=== PATIENT | male | born 1955 | race Caucasian/White ===

== ENCOUNTER 2021-04-16 09:01 | Emergency (ER) | payer MEDICARE, OTHER ==
--- NOTE | 2021-04-16 09:33 | EDM.PDOC ---
ED HPI GENERAL MEDICAL PROBLEM - General Stated Complaint: ARM PAIN, DIZZY Time Seen by Provider: 04/16/21 09:10 Source of Information: Reports: Patient History Limitations: Reports: No Limitations - History of Present Illness INITIAL COMMENTS - FREE TEXT/NARRATIVE: pt come in ambulatory from home with concerns for waking up feeling dizzy this morning, also noticing numbness at left hand and left side of his face, he had an emesis on his way to hospital, denies any HAs, neck stiffness , fever , chest pain or any other associated sx, report stable chronic smoker cough and denies any other resp sx or CV or neuro or constitutional sx or any other medical concerns. pt report Hx of recurrent dizzy spells but today he is worried about the numbness , he feels fine now that he is here and after he had the emesis this morning. ED ROS GENERAL - Review of Systems Review Of Systems: See Below Constitutional: Reports: No Symptoms. Denies: Fever, Chills, Fatigue, Night Sweats HEENT: Reports: No Symptoms Respiratory: Reports: No Symptoms Cardiovascular: Reports: No Symptoms GI/Abdominal: Reports: No Symptoms : Reports: No Symptoms Musculoskeletal: Reports: No Symptoms Skin: Reports: No Symptoms Neurological: Reports: Dizziness, Numbness Psychiatric: Reports: No Symptoms ED EXAM, GENERAL - Physical Exam Exam: See Below Exam Limited By: No Limitations General Appearance: Alert, No Apparent Distress Head: Atraumatic, Normocephalic Respiratory/Chest: No Respiratory Distress, Lungs Clear Cardiovascular: Normal Peripheral Pulses, Regular Rate, Rhythm GI/Abdominal: Normal Bowel Sounds, Soft Back Exam: Normal Inspection Extremities: Normal Inspection Neurological: Alert, Oriented, CN II-XII Intact, Normal Reflexes, No Motor/Sensory Deficits Psychiatric: Normal Affect Skin Exam: Warm Course - Vital Signs Text/Narrative:: labs are unremarkable , Head CT without contrast shows chronic small vessel disease changes , old lacunar infarct and no acute findings. pt has is mildly hypertensive , he is asymptomatic now and ambulatory, repeat neuro exam is nl, pt is medically stable for discharge home , findings on his CT were explained, had a lengthy discussion regarding smoking cessation. pt had a recurrent dizzy spell this morning which is chronic for him, and unexpl ained numbness at left hand and left side of his face today that resolved, he may have had subtle sx of TIA, he is stable for discharge home , asked him to establish care with a PCP on Monday for a re-check and to establish mng plan for smoking cessation as well screening for health maintenance issues as well rechecking on his elevated BP today. - Orders/Labs/Meds Orders: Active Orders 24 hr Category Date Time Status Head wo Cont [CT] Stat Exams 04/16/21 09:35 Taken Sodium Chloride 0.9% [Normal Saline] 1,000 ml Med 04/16/21 09:36 Active IV .BOLUS Medication Orders Sodium Chloride (Normal Saline) 1,000 mls @ 500 drops/hr IV .BOLUS ONE Stop: 04/17/21 15:35 Labs: Laboratory Tests 04/16/21 04/16/21 04/16/21 Range/Units 09:45 09:45 09:45 WBC 10.1 (3.2-10.1) x10-3/uL RBC 4.60 (3.90-5.90) x10(6)uL Hgb 13.6 (12.9-17.7) g/dL Hct 41.6 (38.3-50.1) % MCV 90.5 (80.8-98.7) fL MCH 29.6 (27.0-33.3) pg MCHC 32.7 (28.7-35.3) g/dL RDW 13.5 (12.4-15.0) % Plt Count 291 (117-477) x10(3)uL Sodium 140 (135-145) mmol/L Potassium 4.9 (3.5-5.3) mmol/L Chloride 103 (100-110) mmol/L Carbon Dioxide 28 (21-32) mmol/L BUN 15 (7-18) mg/dL Creatinine 1.1 (0.70-1.30) mg/dL Est Cr Clr Drug Dosing TNP Estimated GFR (MDRD) > 60 (>60) BUN/Creatinine Ratio 13.6 (9-20) Glucose 105 (80-116) mg/dL Calcium 8.7 (8.6-10.2) mg/dL Total Bilirubin 0.8 (0.1-1.3) mg/dL AST 47 H (5-25) IU/L ALT 63 H (12-36) U/L Alkaline Phosphatase 102 (56-112) IU/L Total Protein 6.4 (6.0-8.0) g/dL Albumin 3.2 (3.2-4.6) g/dL Globulin 3.2 g/dL Albumin/Globulin Ratio 1.0 TSH, Ultra Sensitive 1.89 (0.36-3.74) IU/mL Ethyl Alcohol < 0.03 (<0.03) % Meds: Medications Generic Name Dose Route Start Last Admin Trade Name Freq PRN Reason Stop Dose Admin Sodium Chloride 1,000 mls @ 500 drops/hr 04/16/21 09:36 Normal Saline IV 04/17/21 15:35 .BOLUS ONE Departure - Departure Time of Disposition: 11:38 Disposition: Home, Self-Care 01 Clinical Impression: Spell of dizziness - Discharge Information - My Orders Last 24 Hours: My Active Orders 04/16/21 09:35 Head wo Cont [CT] Stat 04/16/21 09:36 Sodium Chloride 0.9% [Normal Saline] 1,000 ml IV .BOLUS - Assessment/Plan Last 24 Hours: My Active Orders 04/16/21 09:35 Head wo Cont [CT] Stat 04/16/21 09:36 Sodium Chloride 0.9% [Normal Saline] 1,000 ml IV .BOLUS
[2021-04-16] MEDS ORDERED: Sodium Chloride 0.9% 1,000 ML IV ONE (09:36)
--- NOTE | 2021-04-16 11:59 | CT ---
INDICATION: Dizziness, numbness and tingling left hand, left facial area. CT HEAD WITHOUT CONTRAST: Spiral 3.75 mm axial sections were obtained through the brain without contrast with axial, sagittal and coronal reconstructions 04/16/21 - no comparisons. Total exam DLP was 1450.76 milligray-cm. The paranasal sinuses showed several areas of thickening of the linings of ethmoid air cells especially on the right and also at the frontal air cells. The maxillary and sphenoidal air cells were unremarkable, as were the mastoid air cells. No cranial abnormality was identified. The orbits appear to be intact. Minimal internal carotid artery calcifications are noted. There is a focal shift of midline at the frontal horns of the lateral ventricles of questionable significance. No significant-appearing shift was seen. There is asymmetry in the lateral ventricles, the left being significantly larger than the right which may be on the basis of developmental anomaly. No obvious etiology was otherwise suggested. However, there is noted a low-density abnormality in the caudate nucleus on the left compatible with a lacunar infarct. There may be some very minimal decreased density in the white matter periventricular also noted which may represent very minimal microvascular disease, although other cause of leukoencephalopathy cannot be excluded. No bleeding site or hematoma was identified. Thayer-white interface appeared normal. IMPRESSION: 1. No definite acute intracranial abnormality. 2. Question very minimal microvascular disease type changes with suggestion of minimal calcification in the internal carotid arteries. 3. Probable lacunar infarct at the left caudate nucleus. 4. Asymmetry of left lateral ventricle which is prominent and of questionable significance. Report was called to Dr. Moon at 1054 hours 04/16/21. [facility]ITALTammy
--- NOTE | 2021-04-21 19:40 | PCM.EKG ---
#1 Interpretation EKG Date: 04/16/21 Rhythm: NSR [place]: Normal P-Wave: Present Comparison: NA - No Prior EKG
== END 2021-04-16 12:10 | disposition home or self-care (01) ==
LOC: FB.ED 09:01
DX: R42 Dizziness and giddiness (principal); F81.81 Disorder of written expression
CPT/HCPCS: 36415; 70450; 80053; 80307; 84443; 85027; 93005; 99284-25